=== PATIENT | female | born 1980 | race Asian ===

== ENCOUNTER 2020-04-24 15:19 | Emergency (ER) | payer OTHER ==
[~2020-04-24] VITALS: Ht 160 cm; Wt 63.5 kg
[2020-04-24 15:31] VITALS: Ht 160 cm; Wt 63.5 kg
[2020-04-24 18:39] VITALS: BP 108/75
== END 2020-04-24 18:39 | disposition home or self-care (01) ==
LOC: ED 15:19
DX: M62.838 Other muscle spasm (principal); R42 Dizziness and giddiness; R51.9 Headache, unspecified; Z98.890 Other specified postprocedural states; V43.52XA Car driver injured in collision with other type car in traffic accident, initial encounter; Y93.I9 Activity, other involving external motion; Y92.488 Other paved roadways as the place of occurrence of the external cause; Y99.8 Other external cause status